=== PATIENT | female | born 1960 | race Caucasian/White ===

== ENCOUNTER 2017-08-26 20:52 | Inpatient (IN) | payer MEDICARE ==
[~2017-08-26] VITALS: Ht 162.5 cm; Wt 95.9 kg
--- NOTE | ~2017-08-26 | WRIGHTHP ---
[place], [place] PATIENT HISTORY AND PHYSICAL EXAM NAME: WON CARPENTER UNIT #: [id number] ROOM: 317 DOCTOR: MARYANN MARKHAM MD BIRTHDATE: [birth year] DOS: 08/27/2017 CHIEF COMPLAINT: "I don't know why I am here and I do not know how you can decide what medicine I need to be on." SUMMARY OF THE VISIT: This is a 56-year-old white female who was sent here on an involuntary basis by [facility]. The patient has been homeless and has most recently been living in the [facility] in [place]. Her behavior there was found to be very erratic and bizarre. She was grossly delusional and manic. The [facility] did call [place] [employer] to pick the patient up who brought her in to [place] for further evaluation. Per the report of [place], the patient has a lengthy psychiatric history with multiple psychiatric admissions and per her report in excess of 15 psychiatric admissions during her lifetime. She presents acutely manic and grossly psychotic. She is not able to meet her basic needs due to the level of her psychosis. She does state that she has a past history remarkable for attention deficit disorder for which she is prescribed Adderall, also having a history of OCD and PTSD. She is admitted now to further rule out organic factors, to engage in individual and jenkins milieu activity, to rule out lethality issues and then to discharge to the least restrictive environment when psychiatrically stable. PAST MEDICAL HISTORY: Per her report is positive for the ADHD, the OCD and the PTSD. She also has a fusion of the cervical spine and a lumbar laminectomy. SOCIAL HISTORY: The patient does admit to consuming alcohol on a social basis. She is a current cigarette smoker and has been one for 40+ years. She denies the use of any illicit drugs. ALLERGY: She lists an allergy to PAXIL. STRENGTHS: The patient has good verbal skills. She is ambulatory and is relatively healthy. MENTAL STATUS: The patient is alert and oriented to person, place and time. Her speech rate and pattern is definitely pressured. She is somewhat circumstantial if not frankly tangential in her thinking. She is disjointed and fragmented and has a hard time completing a single thought without derailing. She is grossly delusional, although we did not elicit much of this during the initial evaluation. Nurses report she is fixated on radio waves controlling her and being able to make her do things against her will. For the most part, memory is intact. DIAGNOSIS: Schizoaffective disorder. PLAN: At this point in time, she states that she is willing to consider medication. I will discontinue the Risperdal M-Tab which I had initially ordered upon admission in lieu of Fanapt 1 mg twice daily. If she is compliant with this, I plan to titrate this rapidly over the next several days, trying to break through the psychosis and the irina. We will attempt to engage her in individual and jenkins milieu activity. We will explore with protective services social worker what [place], [place] PATIENT HISTORY AND PHYSICAL EXAM NAME: WON CARPENTER UNIT #: [id number] ROOM: 317 DOCTOR: MARYANN MARKHAM MD BIRTHDATE: [birth year] options we have post-discharge regarding placement. We will discharge then when psychiatrically stable. MARYANN MARKHAM MD CM:HISPHYS:PATIENT HISTORY AND PHYSICAL EXAMINATION 3 2 MARYANN MARKHAM MD 08/27/17921 interface
--- NOTE | ~2017-08-26 | PR ---
[place], [place] PROGRESS NOTE NAME: WON CARPENTER UNIT #: [id number] ROOM: 317 DOCTOR: MARYANN MARKHAM MD BIRTHDATE: [birth year] DOS: 08/29/2017 CHIEF COMPLAINT: "I am just lying in bed, make the time go faster. I just hope I can get out of here and find my sleeping bag." SUMMARY OF THE VISIT: The patient was interviewed as she was resting in her bed. She was awake. She was not sleeping. She reported to me that she is feeling fine. She is not as pressured or as agitated as she was upon admission and is much more pleasant and cooperative with me. She still is pushing for discharge. She is not suicidal or homicidal, or self-injurious and is voicing a readiness to go back either to the [facility] or if she had to live on the streets. MENTAL STATUS: She is alert and oriented. Mood does seem to be fairly euthymic. Affect appropriate. There was no agitation or aggression. No threats towards me. No hypomania, irina or psychosis. No suicidal, homicidal, or self-injurious thoughts. Memory for the most part is intact. PLAN: We will continue to assess for lethality. If there is no lethality present, I have no grounds to continue her stay here in a locked psychiatric unit. We will discharge then to the least restrictive environment. MARYANN MARKHAM MD CM:PNTRANS [id number] MARYANN MARKHAM MD 08/30/17 0009 interface
--- NOTE | ~2017-08-26 | DS ---
[place], [place] DISCHARGE SUMMARY [id number] UNIT #: [id number] ROOM: 317 DOCTOR: MARYANN MARKHAM MD BIRTHDATE: [birth year] DOS: 08/30/2017 CHIEF COMPLAINT: "I don't know why I am here. I do not know how you can decide what medicine I need to be on." SUMMARY OF THE VISIT: This is a 56-year-old white female who was sent here on an involuntary basis by [facility]. The patient had been homeless and most recently been living at the [facility] in [place]. Her behavior was found to be very erratic and bizarre there. She was grossly delusional and manic. The [facility] did call [place] police to pick her up and brought her to [facility] for further evaluation. Per the report of [place], the patient has a lengthy psychiatric history with multiple psychiatric admissions in excess of 15, per her report. She presents acutely manic and grossly psychotic. She is not able to meet her basic needs due to the psychosis. She states that she also has a history remarkable for attention deficit disorder for which she is prescribed Adderall and also a history of OCD and PTSD. She is admitted now basically to rule out lethality and to see if we can stabilize on medication, engage in individual and jenkins milieu activity, determining the least restrictive environment to which she could be discharged. PAST MEDICAL HISTORY: Per her report positive for ADHD, OCD, PTSD as well as cervical fusion of the spine and lumbar laminectomy. ALLERGIES: She lists allergies to PAXIL. SOCIAL HISTORY: She does admit to consuming alcohol on a social basis. She is currently a cigarette smoker and has been one for 40 years. She denies the use of any illicit drugs. STRENGTHS: The patient has good verbal skills, is ambulatory and relatively healthy. WEAKNESS: Has poor coping skills and a significant severe mental health illness. SUMMARY OF HOSPITAL COURSE: The patient was admitted to the unit where she was found to be grossly delusional and manic. She, however, was not willing to take any medications even when her vitamin D level upon admission was found to be low and it was explained to her that she could take replacement. She did not want any medication. The patient consistently, however, was able to pull it together. She slept well. She attended to her ADLs. She attended group and individual activities. She convincingly denied suicidal thoughts, homicidal thoughts or any self-injurious thoughts. At no point in time did she become loud, demanding, boisterous or threatening. She was deemed not to be acutely lethal at this point and I had no further grounds to maintain a psychiatric hospitalization. She was discharged then back to the [facility] [place]. MENTAL STATUS AT DISCHARGE: The patient is alert and oriented to person, place, and time. Mood is still somewhat hypomanic and she does tend to jump from topic [place], [place] DISCHARGE SUMMARY NAME: WON CARPENTER UNIT #: [id number] ROOM: 317 DOCTOR: MARYANN MARKHAM MD BIRTHDATE: [birth year] to topic, but she does self-redirect as well. She does respond to prompting as well during the conversation. She does seem to be responding to unforeseen others, but again can stop this when normal conversation is occurring. I see no suicidal thoughts, homicidal thoughts or any self-injurious thoughts. I do not see her as an acute risk to harm others. Memory for short, intermediate and long-term events does seem to be intact. FINAL DIAGNOSIS: Schizoaffective disorder. DISPOSITION: The patient is to be discharged back to the [facility] [place]. She is acutely not lethal. She is noncompliant with meds at this point and does not believe she needs them. We will give her the option to have appointments for followup, which I do not believe she will keep. She is discharged at this point. MARYANN MARKHAM MD CM:DISCHARG [id number] MARYANN MARKHAM MD 09/13/17 1000 interface
--- NOTE | ~2017-08-26 | PR ---
[place], [place] PROGRESS NOTE NAME: WON CARPENTER UNIT #: [id number] ROOM: 317 DOCTOR: MARYANN MARKHAM MD BIRTHDATE: [birth year] DOS: 08/28/2017 CHIEF COMPLAINT: "Oh, hi there doctor, how are you." SUMMARY OF THE VISIT: The patient was interviewed after she had already showered. She had gotten up and eaten breakfast. She reported to me this morning that she slept well. She continues to refuse all intervention and does not want to take the Fanapt. I did discuss with her that her vitamin D level was low at 14.4 and she again declined wanting to take any medicine for it. Her biggest complaint at the present time is that she would like to eventually leave here and make certain that she gets back to her belongings and has a roof over her head and a sleeping bag. She convincingly denies suicidal thoughts, homicidal thoughts or any self-injurious thoughts and somewhat manicky and psychotic. She does not appear to be at risk for harming self or others. I have instructed nursing staff to continue to monitor this and document so that we can determine whether or not lethality is present. At this point while symptomatic, she is not necessarily at risk of harm to self and others and will have to be discharged when her involuntary is over. MENTAL STATUS: She is alert and oriented with time gaps. Mood does seem to be still shifting back and forth and that she is somewhat manicky. She denies suicidal, homicidal, or self-injurious thoughts. She denies auditory hallucinations. Memory is fairly intact. PLAN: I will discontinue the Fanapt as she refuses to take it. I offered her vitamin D supplementation. She is refusing this. We will support and monitor, engage in document and discharge when stable. MARYANN MARKHAM MD CM:PNTRANS [id number] MARYANN MARKHAM MD 08/28/17 1441 interface
[2017-08-26] MEDS ORDERED: ADDERALL 30 MG30 MG PO (21:41)
[2017-08-26] MEDS ORDERED: [UNRECOGNIZED DRUG - REMARK] (23:13)
[2017-08-26 23:35] VITALS: BP 144/79
[2017-08-27 07:40] VITALS: BP 136/70
[2017-08-27 08:32] LABS: CHLORIDE 108 mmol/L (98-107); POTASSIUM 3.7 mmol/L (3.5-5.1); SODIUM 141 mmol/L (136-145)
[2017-08-27 08:47] LABS: ALBUMIN 3.7 gm/dl (3.1-4.5); ALKALINE PHOSPHATASE 87 U/L (45-117); BUN 12 mg/dl (7-24); CHOLESTEROL 186 mg/dL (<200); CREATININE 0.86 mg/dL (0.55-1.02); HDL CHOLESTEROL 61 mg/dl (40-60); LDL CHOLESTEROL 106 mg/dL (9-159); SGOT/AST 52 IU/L (3-35); SGPT/ALT 56 U/L (12-78); TOTAL PROTEIN 6.9 gm/dL (6.4-8.2); TRIGLYCERIDES 93 mg/dl (<150); VLDL CHOLESTEROL 19 mg/dL (6-40)
[2017-08-27 11:05] LABS: VITAMIN D, 25-HYDROXY 14.4 ng/mL (30-100)
[2017-08-27 20:14] VITALS: BP 116/72
[2017-08-28 08:06] VITALS: BP 115/68
[2017-08-28 20:56] VITALS: BP 117/63
[2017-08-29 08:04] VITALS: BP 115/75
[2017-08-29 20:12] VITALS: BP 107/61
[2017-08-30 07:49] VITALS: BP 117/67
== END 2017-08-30 14:01 | disposition home or self-care (01) | DRG 885 ==
LOC: 3N
PROVIDERS: Psychiatry & Neurology Psychiatry
DX: F25.9 Schizoaffective disorder, unspecified (principal); E66.09 Other obesity due to excess calories; F42.9 Obsessive-compulsive disorder, unspecified; F43.10 Post-traumatic stress disorder, unspecified; F98.8 Other specified behavioral and emotional disorders with onset usually occurring in childhood and adolescence; F17.200 Nicotine dependence, unspecified, uncomplicated; F90.9 Attention-deficit hyperactivity disorder, unspecified type; Z88.8 Allergy status to other drugs, medicaments and biological substances; Z79.899 Other long term (current) drug therapy; Z71.6 Tobacco abuse counseling; Z80.42 Family history of malignant neoplasm of prostate; Z98.51 Tubal ligation status; Z68.36 Body mass index [BMI] 36.0-36.9, adult

== ENCOUNTER 2017-08-26 22:34 | Emergency (ER) | payer MEDICARE ==
[~2017-08-26] VITALS: Wt 86.6 kg
[~2017-08-26 22:34] MED LIST: ADDERALL 30 MG30 MG PO
[2017-08-26] MEDS ORDERED: [UNRECOGNIZED DRUG - REMARK] (23:13)
== END 2017-08-26 23:53 | disposition home health service (06) ==
LOC: ED 22:34
DX: F25.9 Schizoaffective disorder, unspecified (principal); F42.9 Obsessive-compulsive disorder, unspecified; F43.10 Post-traumatic stress disorder, unspecified; F98.8 Other specified behavioral and emotional disorders with onset usually occurring in childhood and adolescence; F17.200 Nicotine dependence, unspecified, uncomplicated; Z88.8 Allergy status to other drugs, medicaments and biological substances